=== PATIENT | male | born 1955 | race Caucasian/White ===

== ENCOUNTER → 2016-12-26 | Outpatient (CLI) | payer OTHER ==
--- NOTE | 2016-12-26 18:27 | PN ---
DATE OF SERVICE: 12/26/2016 This patient is a 61-year-old gentleman who has been followed in the sleep center for treatment of obstructive sleep apnea/hypopnea syndrome. Patient is on treatment with CPAP at the pressure of 7 cm of water. He is trying to use equipment every night for the whole night. Sometimes he may take his mask off in the morning. I checked his machine; CPAP pressure is 7 cm of water. With the machine, patient does not have snoring, does not feel any sleepiness during the day. [place] Sleepiness Scale is 1. He is satisfied with his full-face mask. MEDICATIONS: 1. Meclizine. 2. Valium. 3. Tylenol. PHYSICAL EXAMINATION: Patient is in no distress. VITAL SIGNS: BP 118/63, HR 74, RR 16. Height 5 feet 11-1/2 inches. Weight 188. BMI 25.8. Temperature 98.0. Oxygen saturation at room air 98%. Patient has lost 3 pounds since the previous sleep study, which was done in 2013. HEENT: LETHA, EOMI. Evaluation of oropharynx showed tongue protrudes midline; low position of soft palate. NECK: Supple. No JVD. Thyroid is not palpable. LUNGS: Clear to percussion and to auscultation. Good air exchange. No wheezing or rhonchi. HEART: S1, S2 regular. No murmurs, gallops or rubs. ABDOMEN: Soft and nontender. Bowel sounds are present. No organomegaly appreciated. EXTREMITIES: No clubbing or cyanosis. CLINICAL PROJECT MANAGER: Awake, alert, and oriented x3. Cranial nerves 2 to 7 intact. There is no fasciculation or atrophy noted. No focal deficits observed. IMPRESSION: 1. Obstructive sleep apnea/hypopnea syndrome in moderate range. By results of previous sleep study, apnea-hypopnea index 15.7, clinically under control with CPAP at 7 cm of water. No snoring with the machine. Patient is benefiting from treatment. 2. Episodes of anxiety. 3. Nausea. 4. Neck problems and neck pain. 5. Back pain. PLAN: 1. Continue treatment with CPAP every night. 2. Prescription for all necessary CPAP supplies, including mask, tube, filters. 3. No driving if feeling any sleepiness. 4. Sleep hygiene with regular time in bed for at least 8 hours. 5. Follow-up visit in one year. Thank you very much for allowing me to participate in the management your patient. Sincerely, Prasad Wheat MD, PhD, FAASM. Diplomat of [place] [employer], Sleep Medicine Board by [place] [employer], [place] Board of [employer]
== END | disposition home or self-care (01) ==
LOC: SLEEP 14:26
PROVIDERS: ATTEND Internal Medicine
DX: G47.33 Obstructive sleep apnea (adult) (pediatric) (principal); F41.9 Anxiety disorder, unspecified; R11.0 Nausea; M54.2 Cervicalgia; M54.9 Dorsalgia, unspecified; Z79.899 Other long term (current) drug therapy

== ENCOUNTER → 2018-04-16 | Outpatient (CLI) | payer MEDICARE ==
--- NOTE | 2018-04-16 14:24 | SFUN ---
SLEEP CENTER FOLLOW UP NOTE DATE OF SERVICE: 04/16/2018 A 63-year-old gentleman has been followed in Sleep Center for treatment of obstructive sleep apnea-hypopnea syndrome. The patient successfully continued to use his CPAP equipment every night without problems. No snoring with the machine. No significant excessive daytime sleepiness. [place] Sleepiness Scale is normal at 3. The patient referred that he would prefer to consider a different styles of fullface mask. MEDICATIONS: Meclizine, Valium, Tylenol. PHYSICAL EXAM: GENERAL During physical exam, patient in no distress. VITAL SIGNS BP 98/60, HR 75, RR 16, height 5 foot 11-10/07, weight 190.2, BMI 26.1, temp is 98.1, oxygen saturation room air 98%. HEENT PERRLA, EOMI, evaluation of oropharynx showed extremely low position of soft palate. NECK Supple, no JVD. Thyroid is not palpable. LUNGS Clear to percussion and to auscultation. Good air exchange. No wheezing or rhonchi. HEART S1, S2 regular. No murmurs, gallops, or rubs. ABDOMEN Soft and nontender. Bowel sounds are present. No organomegaly appreciated. EXTREMITIES No clubbing or cyanosis. HOSPITALITY SERVICES MANAGER Awake, alert, and oriented X3. Cranial nerves 2 to 7 intact. There is no fasciculation or atrophy. noted. No focal deficits observed. IMPRESSION: 1. Obstructive sleep apnea-hypopnea syndrome. The patient continued to use his CPAP equipment benefitting on regular basis with good compliance, benefitting from treatment. 2. History of episodes of anxiety. 3. Neck problems and neck pain sometimes. 4. History of back pain. 5. Episodes of nausea. PLAN: 1. Patient will continue to use CPAP equipment every night for the whole night. 2. We will show the patient different style of mask with a nasal part going under the nose with coverage of mouth like [place]. 3. No driving if feeling sleepiness. 4. Prescription for all necessary CPAP supplies including mask, tube, filters. Thank you very much for allowing me to participate in management of your patient. Sincerely, Prasad Wheat MD, PhD, FAASM Diplomat of [place] [employer] Special[employer] [place] [employer] Medicine Barrel Raiser Helper [facility] [place] MMODL / DAVINN: [id number] /
== END | disposition home or self-care (01) ==
LOC: SLEEP 13:17
PROVIDERS: ATTEND Internal Medicine
DX: G47.33 Obstructive sleep apnea (adult) (pediatric) (principal); F41.9 Anxiety disorder, unspecified; M54.2 Cervicalgia; M54.9 Dorsalgia, unspecified; R11.0 Nausea; Z99.89 Dependence on other enabling machines and devices; Z79.899 Other long term (current) drug therapy

== ENCOUNTER → 2019-06-03 | Outpatient (CLI) | payer MEDICARE ==
--- NOTE | 2019-06-03 14:17 | SFUN ---
SLEEP CENTER FOLLOW UP NOTE DATE OF SERVICE: 06/03/2019 A 64-year-old gentleman who has been followed in the Sleep Center for treatment of obstructive sleep apnea-hypopnea syndrome. During the last visit, we change mask to Dream Wear which covered nose and mouth from below. The patient had difficulties with this mask and returned to use of his old Simplex mask. He is trying to use equipment, but has some difficulties with that. [place] Sleepiness Scale today is 3. MEDICATIONS: Meclizine, Valium, Tylenol. PHYSICAL EXAM: Patient in no distress. BP 127/69, HR 70, RR 16, height 5, 11, weight 180, body mass index 25.1. Patient lost weight about 10 pounds since previous visit. Temperature 97.6, oxygen saturation at room air 97%. OROPHARYNX: Extremely low soft palate, Mallampati 4. Neck Supple, no JVD. Thyroid is not palpable. LUNGS Clear to percussion and to auscultation. Good air exchange. No wheezing or rhonchi. HEART S1, S2 regular. No murmurs, gallops, or rubs. ABDOMEN Soft and nontender. Bowel sounds are present. No organomegaly appreciated. EXTREMITIES No clubbing or cyanosis. FACTORY HAND Awake, alert, and oriented X3. Cranial nerves 2 to 7 intact. There is no fasciculation or atrophy. noted. No focal deficits observed. IMPRESSION: 1. Obstructive sleep apnea-hypopnea syndrome. Patient had difficulties with Dream Wear mask, trying to use equipment every night. 2. History of episodes of anxiety. 3. Neck problem with neck pain. 4. History of back pain. 5. Episodes of nausea. PLAN: 1. Patient should use equipment every night for the whole night. 2. Prescription for all necessary CPAP supplies including large size Simplex full-face mask. 3. Sleep hygiene with regular time in bed for 7-1/2 hours. 4. No driving if feeling sleepiness. 5. I would recommend patient to repeat in the titration to recheck fitting of the mask and pressure. Thank you very much for allowing me to participate in the management of your patient. Sincerely, Prasad Wheat MD, PhD, FAASM Diplomat of [place] [employer] Special[employer] [place] Board of Internal Medicine [employer]ist [facility] [place] MMODL / DAVINN: [id number] /
== END | disposition home or self-care (01) ==
LOC: SLEEP 13:10
PROVIDERS: ATTEND Internal Medicine
DX: G47.33 Obstructive sleep apnea (adult) (pediatric) (principal); R11.0 Nausea; Z86.59 Personal history of other mental and behavioral disorders; Z87.39 Personal history of other diseases of the musculoskeletal system and connective tissue

== ENCOUNTER → 2020-03-07 | Outpatient (CLI) | payer MEDICARE | END | disposition home or self-care (01) | LOC: LABWHC1 12:07 | PROVIDERS: ATTEND Internal Medicine Gastroenterology | DX: Z11.59 Encounter for screening for other viral diseases (principal) ==

== ENCOUNTER 2020-03-09 10:13 | Day surgery (SDC) | payer MEDICARE ==
[2020-03-08 08:10] VITALS: BMI 25.7
[~2020-03-09 10:13] MED LIST: LACTATED RINGERS 1,000 ML IV SCH
[2020-03-09 10:42] VITALS: TEMP 97.3
[2020-03-09] MEDS ORDERED: ONDANSETRON 4 MG/2 ML VIAL IVP ONE (10:47)
[2020-03-09] MEDS ORDERED: diphenhydrAMINE 50 MG/ML 1 ML VIAL ONE (11:21)
[2020-03-09] MEDS ORDERED: PROPOFOL 10 MG/ML 20 ML VIAL IV ONE (11:21)
--- NOTE | 2020-03-09 11:41 | P.PCN ---
Date of Procedure: 03/09/20 Procedure(s) Performed: BRIEF HISTORY: Patient is a 64-year-old pleasant male scheduled for an elective colonoscopy as a part of screening for colorectal neoplasia. PROCEDURE PERFORMED: Colonoscopy. PREOPERATIVE DIAGNOSIS: Screening for colon cancer. IV sedation per Anesthesia. PROCEDURE: After informed consent was obtained, the patient, was brought into the endoscopy unit. IV sedation was administered by Anesthesia under continuous monitoring. Digital rectal examination was normal. Initially the Olympus CF-160 flexible video colonoscope was then inserted in the rectum, gradually advanced into the cecum without any difficulty. Careful examination was performed as the scope was gradually being withdrawn. Ileocecal valve and the appendiceal orifice were visualized and appeared normal. Prep was excellent. Mucosa of the cecum, ascending colon, transverse colon, descending colon, sigmoid colon, and rectum appeared normal. Retroflexion was performed in the rectum and small internal hemorrhoids were seen. The patient tolerated the procedure well. IMPRESSION: Normal-appearing colon from rectum to cecum with no evidence of colitis or colorectal neoplasia. Small internal hemorrhoids. RECOMMENDATIONS: Findings of this examination were discussed with the patient as well as his family. He was advised to have a repeat screening colonoscopy in 10 years.
[2020-03-09 12:15] VITALS: BP 148/77; PULSE 67; RESP 16
== END 2020-03-09 12:44 | disposition home or self-care (01) ==
LOC: ORWHC2ENDO 10:13
PROVIDERS: ATTEND Internal Medicine Gastroenterology
DX: Z12.11 Encounter for screening for malignant neoplasm of colon (principal); K64.8 Other hemorrhoids; Z91.013 Allergy to seafood
CPT/HCPCS: J1200; J2405; J2704; G0121

== ENCOUNTER → 2020-08-29 | Outpatient (CLI) | payer MEDICARE ==
--- NOTE | 2020-08-29 14:38 | CT ---
EXAMINATION TYPE: CT soft tissue neck w con DATE OF EXAM: 08/29/2020 COMPARISON: None HISTORY: feels like something caught in throat CT DLP: 363.5 mGycm CONTRAST: CT scan of the neck is performed with IV Contrast, patient injected with 100 mL of Isovue 300. Contrast enhanced CT of the neck was performed from the skull base through the lung apices. AIRWAY: The supraglottic, glottic, and subglottic portions of the airway appear patent and free of mass. SALIVARY GLANDS: The submandibular and parotid glands are free of mass or inflammatory process. THYROID GLAND: No nodules or masses seen. LYMPH NODES: No adenopathy seen greater than 1cm. LUNG APICES: No nodule or mass is seen. OTHER: Vascular structures are patent. No significant degenerative change of the cervical spine. N o abscess seen. IMPRESSION: No distinct abnormality identified to account for the patient's symptoms. Consider direct visualizati on if symptoms persist.
== END | disposition home or self-care (01) ==
LOC: RADCTMAIN 12:26
PROVIDERS: ATTEND Otolaryngology
DX: R22.1 Localized swelling, mass and lump, neck (principal); R09.89 Other specified symptoms and signs involving the circulatory and respiratory systems
CPT/HCPCS: 82565; 84520; 70491; 36415; Q9967

== ENCOUNTER → 2020-12-20 | Outpatient (CLI) | payer MEDICARE ==
--- NOTE | 2020-12-20 15:24 | SFUN ---
SLEEP CENTER FOLLOW UP NOTE DATE OF SERVICE: 12/20/2020 This is a 65-year-old gentleman who has been followed in the sleep center for treatment of obstructive sleep apnea-hypopnea syndrome. The patient improved his compliance with CPAP. Now he is using CPAP equipment every night for the whole night. No snoring with the machine. [place] Sleepiness Scale today is zero. I checked his CPAP unit. Usage is 27/30 nights for more than 4 hours with average usage 7.06 hours per night. CPAP pressure is 7 cm of water. The machine does not have information about apnea-hypopnea index and leak. The patient is using a full-face Simplus large-size mask and regular tubing. MEDICATIONS: None. PHYSICAL EXAMINATION: GENERAL: A pleasant patient in no distress. VITAL SIGNS: BP 177/75, HR 78, RR 14, height 6 feet 0 inches, weight 197.4, body mass index 26.7, oxygen saturation at room air 100%. HEENT: PERRLA, EOMI. Evaluation of oropharynx showed tongue protrudes midline. Extremely low position of soft palate. Mallampati IV. NECK: Supple. No JVD. Thyroid is not palpable. LUNGS: Clear to percussion and to auscultation. Good air exchange. No wheezing or rhonchi. HEART: S1, S2 regular. No murmurs, gallops or rubs. ABDOMEN: Soft and nontender. Bowel sounds are present. No organomegaly appreciated. EXTREMITIES: No clubbing or cyanosis. PLUG CUTTER: Awake, alert, and oriented X3. Cranial nerves 2 to 7 intact. There is no fasciculation or atrophy. noted. No focal deficits observed. IMPRESSION: 1. Obstructive sleep apnea-hypopnea syndrome. The patient demonstrated great compliance with treatment, benefitting from treatment. 2. Neck pain. 3. History of back problems and pain. 4. History of episodes of nausea in the past. 5. The patient is planning to be evaluated by a flute grinder for arthritis problems. 6. Hypertension in the office today. PLAN: 1. Low-sodium diet. 2. Monitoring of blood pressure with primary care physician. 3. Patient will continue to use PAP equipment every night for the whole night. 4. Sleep hygiene with regular time in bed for at least 7-1/2 to 8 hours. 5. Precautions related to driving. No driving if feeling sleepiness. 6. I will maintain all necessary prescription for PAP supplies including mask, tube, filters. 7. Watching weight. 8. Follow-up visit in 6 months or earlier if patient has any problems. Thank you very much for allowing me to participate in the management of your patient. Sincerely, Prasad Wheat MD, PhD, FAASM Diplomat of [place] Board of Medical Specialties [place] Board of Internal Medicine Dean Of Graduate Studies of [facility] [place] MMODL / IJN: [id number] /
== END ==
LOC: SLEEP 13:07
PROVIDERS: ATTEND Internal Medicine
DX: G47.33 Obstructive sleep apnea (adult) (pediatric) (principal); M54.2 Cervicalgia; M19.90 Unspecified osteoarthritis, unspecified site; I10 Essential (primary) hypertension; Z87.891 Personal history of nicotine dependence; Z87.19 Personal history of other diseases of the digestive system

== ENCOUNTER 2022-06-04 09:18 | Emergency (ER) | payer MEDICARE ==
[2022-06-04 10:04] VITALS: RESP 18
[2022-06-04] MEDS ORDERED: ONDANSETRON 4 MG/2 ML VIAL IVP STA (10:41)
[2022-06-04] MEDS ORDERED: PANTOPRAZOLE 40 MG/10 ML VIAL IVP STA (10:41)
[2022-06-04] MEDS ORDERED: SODIUM CHLORIDE 0.9% 1,000 ML IV STA (10:41)
--- NOTE | 2022-06-04 10:50 | ED ---
General Adult HPI - General Chief complaint: Dizziness Stated complaint: vomiting Time Seen by Provider: 06/04/22 10:15 Source: patient, family, RN notes reviewed, old records reviewed Mode of arrival: ambulatory Limitations: no limitations - History of Present Illness Initial comments: This is a well-appearing 67-year-old male that presents to the emergency room with complaints of 4 days of dizziness with abdominal fullness and bloating. He states 4 days ago he turned to look out the window and developed dizziness, this was similar to his previous episodes of peripheral vertigo. He states his dizziness is resolved at this time. He has chronic nausea and continues to be nauseated and unable to eat, having dry heaves. Family states that he is vomiting bile. He denies any fevers or sick contacts. No diarrhea. Last bowel movement was 3 days ago normal. Does have a history of GERD and had an endoscopy with Dr. Owens a year ago diagnosed with hiatal hernia. -: days(s) (4) Location: abdomen Radiation: non-radiation Severity scale (1-10): 6 Quality: other (full, bloated) Consistency: constant Improves with: none Worsens with: none Associated Symptoms: loss of appetite, malaise, other (dizziness) - Related Data Previous Rx's Medication Instructions Recorded Meclizine [Antivert] 25 mg PO TID PRN #15 tab 06/04/22 Ondansetron Odt [Zofran Odt] 4 mg PO Q8HR PRN #10 tab 06/04/22 Allergies Allergy/AdvReac Type Severity Reaction Status Date / Time shellfish derived [Shellfish] Allergy Rash/Hives Verified 03/08/20 08:05 Review of Systems ROS Statement: Those systems with pertinent positive or pertinent negative responses have been documented in the HPI. ROS Other: All systems not noted in ROS Statement are negative. Past Medical History Past Medical History: GERD/Reflux, Osteoarthritis (OA) Additional Past Medical History / Comment(s): vertigo, anemia, nauseated, bloating History of Any Multi-Drug Resistant Organisms: None Reported Additional Past Surgical History / Comment(s): Sinus surgery Past Anesthesia/Blood Transfusion Reactions: Postoperative Nausea & Vomiting (PONV) Past Psychological History: No Psychological Hx Reported Smoking Status: Former smoker Past Alcohol Use History: None Reported Past Drug Use History: None Reported - Past Family History Mother Family Medical History: No Reported History General Exam Limitations: no limitations General appearance: alert, in no apparent distress Head exam: Present: atraumatic, normal inspection Eye exam: Present: EOMI. Absent: scleral icterus, conjunctival injection, nystagmus, periorbital swelling, periorbital tenderness ENT exam: Present: mucous membranes moist Neck exam: Present: normal inspection, full ROM. Absent: tenderness, meningismus, lymphadenopathy, thyromegaly Respiratory exam: Present: normal lung sounds bilaterally. Absent: respiratory distress, accessory muscle use Cardiovascular Exam: Present: regular rate GI/Abdominal exam: Present: soft. Absent: distended, tenderness, guarding, rebound, rigid, mass Extremities exam: Present: normal inspection, full ROM, normal capillary refill. Absent: tenderness, pedal edema Back exam: Present: full ROM. Absent: tenderness, CVA tenderness (R), CVA tenderness (L), muscle spasm, paraspinal tenderness, vertebral tenderness, rash noted Neurological exam: Present: alert, oriented X3 Psychiatric exam: Present: normal affect, normal mood Skin exam: Present: warm, dry, normal color. Absent: rash, cyanosis, diaphoretic, petechiae, pallor Course Vital Signs 06/04/22 06/04/22 06/04/22 09:59 10:35 13:34 Temperature 98.1 F 97.9 F 98.0 F Pulse Rate 80 74 Respiratory 18 18 Rate Blood Pressure 157/90 126/74 O2 Sat by Pulse 100 99 Oximetry - Reevaluation(s) Reevaluation #1: 06/04/22 11:40 Patient denies any dizziness in the emergency room however he still complains of nausea and diffuse headache. Patient was given Tylenol and droperidol. 06/04/22 11:43 Time: 11:40 EKG Findings - EKG Results: EKG: sinus rhythm (Ventricular rate 69, LA interval 0.148, QRS 0.105, QTC 0.427) Medical Decision Making - Medical Decision Making X-ray shows an overall nonobstructive bowel gas pattern. No evidence of dilatation or air fluid levels. CBC is unremarkable, no evidence of lactic acidosis. Coronavirus negative. CTA brain images show no evidence of high-grade stenosis or intracranial aneurysm. Patient states that he is feeling better, he has had no complaints of dizziness in the emergency room. He states that his nausea is been persistent for several years and takes antihistamines for it at home. He has no focal neurological deficits no ataxia. He will be given a prescription for Antivert for his peripheral vertigo as needed and Zofran for his nausea. He will be directed to return to the emergency room if any new or concerning symptoms. He is agreeable to this plan of care. Vital signs are stable. Case discussed with Dr. Christensen - Lab Data Result diagrams: 06/04/22 10:49 06/04/22 10:49 Lab Results 06/04/22 06/04/22 06/04/22 Range/Units 10:49 10:49 10:49 WBC 8.5 (3.8-10.6) k/uL RBC 5.26 (4.30-5.90) m/uL Hgb 15.4 (13.0-17.5) gm/dL Hct 46.9 (39.0-53.0) % MCV 89.2 (80.0-100.0) fL MCH 29.3 (25.0-35.0) pg MCHC 32.9 (31.0-37.0) g/dL RDW 12.9 (11.5-15.5) % Plt Count 282 (150-450) k/uL MPV 7.8 Neutrophils % 73 % Lymphocytes % 21 % Monocytes % 3 % Eosinophils % 2 % Basophils % 0 % Neutrophils # 6.2 (1.3-7.7) k/uL Lymphocytes # 1.8 (1.0-4.8) k/uL Monocytes # 0.3 (0-1.0) k/uL Eosinophils # 0.2 (0-0.7) k/uL Basophils # 0.0 (0-0.2) k/uL PT (9.0-12.0) sec INR (<1.2) APTT (22.0-30.0) sec Sodium 137 (137-145) mmol/L Potassium 4.5 (3.5-5.1) mmol/L Chloride 98 (98-107) mmol/L Carbon Dioxide 26 (22-30) mmol/L Anion Gap 13 mmol/L BUN 20 (9-20) mg/dL Creatinine 0.97 (0.66-1.25) mg/dL Est GFR (CKD-EPI)AfAm >90 (>60 ml/min/1.73 sqM) Est GFR (CKD-EPI)NonAf 80 (>60 ml/min/1.73 sqM) Glucose 123 H (74-99) mg/dL Plasma Lactic Acid Robert 2.0 (0.7-2.0) mmol/L Calcium 10.0 (8.4-10.2) mg/dL Total Bilirubin 0.7 (0.2-1.3) mg/dL AST 30 (17-59) U/L ALT 30 (4-49) U/L Alkaline Phosphatase 110 (38-126) U/L Troponin I (0.000-0.034) ng/mL Total Protein 8.5 H (6.3-8.2) g/dL Albumin 4.7 (3.5-5.0) g/dL Amylase 116 H (30-110) U/L Lipase 88 (23-300) U/L Urine Color Urine Appearance (Clear) Urine pH (5.0-8.0) Ur Specific [place] (1.001-1.035) Urine Protein (Negative) Urine Glucose (UA) (Negative) Urine Ketones (Negative) Urine Blood (Negative) Urine Nitrite (Negative) Urine Bilirubin (Negative) Urine Urobilinogen (<2.0) mg/dL Ur Leukocyte Esterase (Negative) Coronavirus (PCR) (Not Detectd) 06/04/22 06/04/22 06/04/22 Range/Units 10:49 10:49 10:49 WBC (3.8-10.6) k/uL RBC (4.30-5.90) m/uL Hgb (13.0-17.5) gm/dL Hct (39.0-53.0) % MCV (80.0-100.0) fL MCH (25.0-35.0) pg MCHC (31.0-37.0) g/dL RDW (11.5-15.5) % Plt Count (150-450) k/uL MPV Neutrophils % % Lymphocytes % % Monocytes % % Eosinophils % % Basophils % % Neutrophils # (1.3-7.7) k/uL Lymphocytes # (1.0-4.8) k/uL Monocytes # (0-1.0) k/uL Eosinophils # (0-0.7) k/uL Basophils # (0-0.2) k/uL PT 11.0 (9.0-12.0) sec INR 1.0 (<1.2) APTT 22.3 (22.0-30.0) sec Sodium (137-145) mmol/L Potassium (3.5-5.1) mmol/L Chloride (98-107) mmol/L Carbon Dioxide (22-30) mmol/L Anion Gap mmol/L BUN (9-20) mg/dL Creatinine (0.66-1.25) mg/dL Est GFR (CKD-EPI)AfAm (>60 ml/min/1.73 sqM) Est GFR (CKD-EPI)NonAf (>60 ml/min/1.73 sqM) Glucose (74-99) mg/dL Plasma Lactic Acid Robert (0.7-2.0) mmol/L Calcium (8.4-10.2) mg/dL Total Bilirubin (0.2-1.3) mg/dL AST (17-59) U/L ALT (4-49) U/L Alkaline Phosphatase (38-126) U/L Troponin I <0.012 (0.000-0.034) ng/mL Total Protein (6.3-8.2) g/dL Albumin (3.5-5.0) g/dL Amylase (30-110) U/L Lipase (23-300) U/L Urine Color Yellow Urine Appearance Clear (Clear) Urine pH 6.0 (5.0-8.0) Ur Specific [place] 1.025 (1.001-1.035) Urine Protein Trace H (Negative) Urine Glucose (UA) Negative (Negative) Urine Ketones 1+ H (Negative) Urine Blood Negative (Negative) Urine Nitrite Negative (Negative) Urine Bilirubin Negative (Negative) Urine Urobilinogen <2.0 (<2.0) mg/dL Ur Leukocyte Esterase Negative (Negative) Coronavirus (PCR) (Not Detectd) 06/04/22 Range/Units 10:49 WBC (3.8-10.6) k/uL RBC (4.30-5.90) m/uL Hgb (13.0-17.5) gm/dL Hct (39.0-53.0) % MCV (80.0-100.0) fL MCH (25.0-35.0) pg MCHC (31.0-37.0) g/dL RDW (11.5-15.5) % Plt Count (150-450) k/uL MPV Neutrophils % % Lymphocytes % % Monocytes % % Eosinophils % % Basophils % % Neutrophils # (1.3-7.7) k/uL Lymphocytes # (1.0-4.8) k/uL Monocytes # (0-1.0) k/uL Eosinophils # (0-0.7) k/uL Basophils # (0-0.2) k/uL PT (9.0-12.0) sec INR (<1.2) APTT (22.0-30.0) sec Sodium (137-145) mmol/L Potassium (3.5-5.1) mmol/L Chloride (98-107) mmol/L Carbon Dioxide (22-30) mmol/L Anion Gap mmol/L BUN (9-20) mg/dL Creatinine (0.66-1.25) mg/dL Est GFR (CKD-EPI)AfAm (>60 ml/min/1.73 sqM) Est GFR (CKD-EPI)NonAf (>60 ml/min/1.73 sqM) Glucose (74-99) mg/dL Plasma Lactic Acid Robert (0.7-2.0) mmol/L Calcium (8.4-10.2) mg/dL Total Bilirubin (0.2-1.3) mg/dL AST (17-59) U/L ALT (4-49) U/L Alkaline Phosphatase (38-126) U/L Troponin I (0.000-0.034) ng/mL Total Protein (6.3-8.2) g/dL Albumin (3.5-5.0) g/dL Amylase (30-110) U/L Lipase (23-300) U/L Urine Color Urine Appearance (Clear) Urine pH (5.0-8.0) Ur Specific [place] (1.001-1.035) Urine Protein (Negative) Urine Glucose (UA) (Negative) Urine Ketones (Negative) Urine Blood (Negative) Urine Nitrite (Negative) Urine Bilirubin (Negative) Urine Urobilinogen (<2.0) mg/dL Ur Leukocyte Esterase (Negative) Coronavirus (PCR) Not Detected (Not Detectd) Disposition Clinical Impression: Vertigo, Nausea Disposition: HOME SELF-CARE Condition: Good Instructions (If sedation given, give patient instructions): Vertigo (ED), Acute Nausea and Vomiting (ED), Dizziness (ED) Additional Instructions: Take the Antivert as needed for any dizziness/vertigo. You can use Zofran for any nausea. Follow-up with her primary care doctor this week. Return to the emergency room with any new or concerning symptoms. Prescriptions: Meclizine [Antivert] 25 mg PO TID PRN #15 tab PRN Reason: Vertigo Ondansetron Odt [Zofran Odt] 4 mg PO Q8HR PRN #10 tab PRN Reason: Nausea Is patient prescribed a controlled substance at d/c from ED?: No Referrals: Tre Turner DO [Primary Care Provider] - 1-2 days Time of Disposition: 13:18
[2022-06-04 11:16] LABS: Basophils % (A) 0 %; Eosinophils # (A) 0.2 k/uL (0-0.7); Eosinophils % (A) 2 %; HCT 46.9 % (39.0-53.0); HGB 15.4 gm/dL (13.0-17.5); Lymphocytes # (A) 1.8 k/uL (1.0-4.8); Lymphocytes % (A) 21 %; MCH 29.3 pg (25.0-35.0); MCHC 32.9 g/dL (31.0-37.0); MCV 89.2 fL (80.0-100.0); Mean Platelet Volume 7.8; Monocytes # (A) 0.3 k/uL (0-1.0); Monocytes % (A) 3 %; Neutrophils # (A) 6.2 k/uL (1.3-7.7); Neutrophils % (A) 73 %; Platelet Count 282 k/uL (150-450); RBC 5.26 m/uL (4.30-5.90); RDW 12.9 % (11.5-15.5); WBC 8.5 k/uL (3.8-10.6)
[2022-06-04 11:24] LABS: Partial Thromboplastin Time 22.3 sec (22.0-30.0)
--- NOTE | 2022-06-04 11:27 | XR ---
EXAMINATION TYPE: XR KUB DATE OF EXAM: 06/04/2022 COMPARISON: CT chest abdomen pelvis 04/30/2015 HISTORY: Abdominal pain TECHNIQUE: Upright KUB image of the abdomen was obtained with 2 radiographs. FINDINGS: Small bowel demonstrates no evidence for dilatation or air fluid levels. Gas and fecal material is seen in non-distended colon. No convincing evidence for pneumoperitoneum. No unusual calcifications. The lung bases are clear. The osseous structures are intact. IMPRESSION: Overall nonobstructive bowel gas pattern.
[2022-06-04] MEDS ORDERED: ACETAMINOPHEN TAB 325 MG TAB PO STA (11:40)
[2022-06-04 11:41] LABS: African American GFR (CKD) >90 (>60 ml/min/1.73 sqM); Albumin 4.7 g/dL (3.5-5.0); Amylase 116 U/L (30-110); Anion Gap 13 mmol/L; Blood Urea Nitrogen 20 mg/dL (9-20); Carbon Dioxide 26 mmol/L (22-30); Chloride 98 mmol/L (98-107); Glucose 123 mg/dL (74-99); Non-African American GFR(CKD) 80 (>60 ml/min/1.73 sqM); Potassium 4.5 mmol/L (3.5-5.1); Sodium 137 mmol/L (137-145); Total Protein 8.5 g/dL (6.3-8.2)
[2022-06-04 11:42] LABS: ALT 30 U/L (4-49); AST 30 U/L (17-59); Alkaline Phosphatase 110 U/L (38-126); Lipase 88 U/L (23-300); Total Bilirubin 0.7 mg/dL (0.2-1.3)
[2022-06-04] MEDS ORDERED: methylPREDNISolone SOD SUCCI 125 MG/2 ML VIAL IV STA (11:46)
[2022-06-04] MEDS ORDERED: diphenhydrAMINE 50 MG/ML 1 ML VIAL IVP STA (11:46)
[2022-06-04 12:39] LABS: Appearance,Urine Clear (Clear); Bilirubin,Urine Negative (Negative); Blood,Urine Negative (Negative); Color,Urine Yellow; Glucose,Urine (UA) Negative (Negative); Ketones,Urine 1+ (Negative); Leukocyte Esterase,Urine Negative (Negative); Nitrite,Urine Negative (Negative); Protein,Urine Trace (Negative); Specific Gravity,Urine 1.025 (1.001-1.035); Urobilinogen,Urine <2.0 mg/dL (<2.0)
--- NOTE | 2022-06-04 12:55 | CT ---
EXAMINATION TYPE: CT angio head CT DLP: 2204.3 mGycm, Automated exposure control for dose reduction was used. DATE OF EXAM: 06/04/2022 12:38 PM COMPARISON: 04/30/2015 CLINICAL INDICATION:Male, 67 years old with history of diffuse pain, dizziness, nausea; PHH, Pain, Di zziness TECHNIQUE: Axially acquired helical CT angiogram of the head and neck was obtained with contrast util izing 100 cc of Isovue-370 administered intravenously. Axial images are supplemented with 3D reconstr uctions which were post-processed at an independent workstation. NASCET criteria used. FINDINGS: No evidence of acute intracranial hemorrhage, mass effect, or midline shift. The ventricles, sulci, a nd cisterns are unremarkable. The visualized portions of the internal carotid arteries, middle cerebral arteries, anterior cerebral arteries, and posterior cerebral arteries are patent. There is a origin of the left posterior cerebral artery. Hypoplastic right posterior communicating artery is noted. The basilar and vertebral arteries are patent. Mild intracranial atherosclerosis noted of the carotid arteries Minimal mucosal thickening of the maxillary sinuses. IMPRESSION: No evidence of high-grade stenosis or intracranial aneurysm.
[2022-06-04 13:36] VITALS: BP 126/74; PULSE 74; TEMP 98
== END 2022-06-04 13:35 | disposition home or self-care (01) ==
LOC: EC 09:18
DX: R11.2 Nausea with vomiting, unspecified (principal); R42 Dizziness and giddiness; Z87.891 Personal history of nicotine dependence; Z91.013 Allergy to seafood; Z20.822 Contact with and (suspected) exposure to COVID-19
CPT/HCPCS: 99284 ×2; 96374 ×2; 96375 ×2; 36415; 93005; 80053; 82150; 83605; 83690; 84484; 85025; 85610; 85730; 81003; 87635; 74018; 70496; 96361; J1200; J2930; J2405; C9113; Q9967

== ENCOUNTER → 2022-07-12 | Outpatient (CLI) | payer MEDICARE ==
[2022-07-12 14:28] LABS: HCT 41.9 % (39.6-50.0); HGB 13.4 g/dL (13.0-17.0); MCH 28.9 pg (27.0-32.0); MCV 90.5 fL (80.0-97.0); NRBC Per 100 WBC 0 /100 WBCS (0.0-0.0); Platelet Count 261 X 10*3/uL (140-440); RBC 4.63 X 10*6/uL (4.40-5.60); WBC 6.69 X 10*3/uL (4.50-10.00)
[2022-07-12 15:04] LABS: ALT 28 U/L (10-49); AST 26 U/L (14-35); African American GFR (CKD) 84.5 (60.0-200.0); Albumin 4.4 g/dL (3.8-4.9); Albumin/Globulin Ratio 1.67 (1.60-3.17); Alkaline Phosphatase 82 U/L (41-126); BUN/Creat Ratio 18.56 Ratio (12.00-20.00); Blood Urea Nitrogen 19.3 mg/dL (9.0-27.0); Calcium 9.6 mg/dL (8.7-10.3); Carbon Dioxide 29.1 mmol/L (20.0-27.5); Chloride 103 mmol/L (96-109); Chol/HDL Ratio 6.42 Ratio; Globulin 2.6 g/dL (1.6-3.3); Glucose 94 mg/dL (70-110); LDL Cholesterol,Calculated 139.6 mg/dL (0.0-131.0); Non-African American GFR(CKD) 72.9 (60.0-200.0); Potassium 4.6 mmol/L (3.5-5.5); Sodium 141 mmol/L (135-145)
[2022-07-12 16:33] LABS: Appearance,Urine Clear (Clear); Bilirubin,Urine Negative (Negative); Blood,Urine Negative (Negative); Color,Urine Yellow (Yellow); Ketones,Urine Negative (Negative); Nitrite,Urine Negative (Negative); PH, Urine 6.5 (5.0-8.0); Specific Gravity,Urine 1.012 (1.001-1.030); Urobilinogen,Urine 0.2 (0.2,1.0)
== END | disposition home or self-care (01) ==
LOC: LABWHC1 07:26
PROVIDERS: ATTEND Family Medicine
DX: Z00.01 Encounter for general adult medical examination with abnormal findings (principal); N40.0 Benign prostatic hyperplasia without lower urinary tract symptoms
CPT/HCPCS: 36415; 80053; 80061; 81003; 84153; 85027

== ENCOUNTER → 2022-07-26 | Outpatient (CLI) | payer MEDICARE | END | disposition home or self-care (01) | LOC: LABWHC1 13:21 | PROVIDERS: ATTEND Dermatology MOHS-Micrographic Surgery | DX: L30.0 Nummular dermatitis (principal) | CPT/HCPCS: 36415; 82955 ==

== ENCOUNTER → 2023-05-27 | Outpatient (CLI) | payer MEDICARE ==
[2023-05-27 11:00] LABS: Appearance,Urine Clear (Clear); Bilirubin,Urine Negative (Negative); Blood,Urine Negative (Negative); Color,Urine Yellow (Yellow); Ketones,Urine Negative (Negative); Nitrite,Urine Negative (Negative); Specific Gravity,Urine 1.008 (1.001-1.030); Urobilinogen,Urine 0.2 E.U./DL
[2023-05-27 11:01] LABS: HCT 41.3 % (39.6-50.0); HGB 13.4 d/dL (13.0-17.0); MCH 28.9 pg (27.0-32.0); MCHC 32.4 d/dL (32.0-37.0); MCV 89.2 FL (80.0-97.0); Mean Platelet Volume 10.7 FL (9.5-12.2); NRBC Per 100 WBC 0 X 10*3/uL (0.00-0.01); Platelet Count 257 X 10*3/uL (140-440); RBC 4.63 X 10*6/uL (4.40-5.60); RDW 13.6 % (11.5-14.5); WBC 6.26 X 10*3/uL (4.50-10.00)
[2023-05-27 11:29] LABS: ALT 27 U/L (10-49); AST 30 U/L (14-35); Albumin 4.4 d/dL (3.8-4.9); Albumin/Globulin Ratio 1.69 Ratio (1.60-3.17); Alkaline Phosphatase 100 U/L (41-126); BUN/Creat Ratio 15.45 Ratio (12.00-20.00); Calcium 9.8 mg/dL (8.7-10.3); Carbon Dioxide 28.1 mmol/L (21.6-31.8); Chloride 103 mmol/L (96-109); Chol/HDL Ratio 6.23 Ratio; Globulin 2.6 d/dL (1.6-3.3); Glucose 99 mg/dL (70-110); LDL Cholesterol,Calculated 158.3 mg/dL (0.0-131.0); Sodium 141 mmol/L (135-145); Total Bilirubin 0.5 mg/dL (0.3-1.2)
== END | disposition home or self-care (01) ==
LOC: LABWHC1 06:45
PROVIDERS: ATTEND Family Medicine
DX: Z00.01 Encounter for general adult medical examination with abnormal findings (principal); N40.0 Benign prostatic hyperplasia without lower urinary tract symptoms
CPT/HCPCS: 36415; 80053; 80061; 81003; 82272; 82306; 83036; 84443; 85027

== ENCOUNTER → 2024-05-04 | Outpatient (CLI) | payer MEDICARE ==
[2024-05-04 11:50] LABS: Appearance,Urine Clear (Clear); Bilirubin,Urine Negative (Negative); Blood,Urine Negative (Negative); Color,Urine Yellow (Yellow); Ketones,Urine Negative (Negative); Nitrite,Urine Negative (Negative); PH, Urine 6.5; Specific Gravity,Urine 1.012 (1.001-1.030); Urobilinogen,Urine 0.2 E.U./DL
[2024-05-04 11:55] LABS: Basophils # (A) 0.08 X 10*3/uL (0.00-0.10); Eosinophils # (A) 0.23 X 10*3/uL (0.04-0.35); HCT 39.8 % (39.6-50.0); HGB 12.3 g/dL (13.0-17.0); Lymphocytes # (A) 2.75 X 10*3/uL (0.90-5.00); Lymphocytes % (A) 35.4 %; MCH 28.4 pg (27.0-32.0); MCHC 30.9 g/dL (32.0-37.0); MCV 91.9 FL (80.0-97.0); Mean Platelet Volume 10.6 FL (9.5-12.2); Monocytes # (A) 0.45 X 10*3/uL (0.20-1.00); Monocytes % (A) 5.8 %; NRBC Per 100 WBC 0 X 10*3/uL (0.00-0.01); Neutrophils # (A) 4.22 X 10*3/uL (1.80-7.70); Neutrophils % (A) 54.4 %; Platelet Count 286 X 10*3/uL (140-440); RBC 4.33 X 10*6/uL (4.40-5.60); RDW 12.5 % (11.5-14.5); WBC 7.76 X 10*3/uL (4.50-10.00)
[2024-05-04 12:27] LABS: ALT 30 U/L (10-49); AST 27 U/L (14-35); Albumin 4.3 g/dL (3.8-4.9); Albumin/Globulin Ratio 1.43 Ratio (1.60-3.17); Alkaline Phosphatase 122 U/L (41-126); BUN/Creat Ratio 21.27 Ratio (12.00-20.00); Blood Urea Nitrogen 23.4 mg/dL (9.0-27.0); Calcium 9.6 mg/dL (8.7-10.3); Carbon Dioxide 24.1 mmol/L (21.6-31.8); Chloride 102 mmol/L (96-109); Chol/HDL Ratio 5.17 Ratio; Glucose 105 mg/dL (70-110); LDL Cholesterol,Calculated 138.4 mg/dL (0.0-131.0); Potassium 4.9 mmol/L (3.5-5.5); Prostate Specific Antigen 1.33 ng/mL (0.000-6.500); Sodium 139 mmol/L (135-145); T4, Free (Free Thyroxine) 1.07 ng/dL (0.80-1.80); Total Bilirubin 0.6 mg/dL (0.3-1.2); Total Protein 7.3 g/dL (6.2-8.2)
== END | disposition home or self-care (01) ==
LOC: LABWHC1 06:59
PROVIDERS: ATTEND Family Medicine
DX: E78.00 Pure hypercholesterolemia, unspecified (principal); N40.0 Benign prostatic hyperplasia without lower urinary tract symptoms; R53.83 Other fatigue; R73.03 Prediabetes
CPT/HCPCS: 36415; 80053; 80061; 81003; 82306; 82607; 82746; 83036; 84153; 84402; 84403; 84439; 84443; 85025

== ENCOUNTER → 2024-05-20 | Outpatient (CLI) | payer MEDICARE | END | disposition home or self-care (01) | LOC: LABWHC1 13:47 | DX: D64.9 Anemia, unspecified (principal) | CPT/HCPCS: 36415; 82728; 83540; 83550; 85025 ==

== ENCOUNTER → 2024-06-16 | Outpatient (CLI) | payer MEDICARE ==
[2024-06-16 18:57] LABS: Basophils # (A) 0.06 X 10*3/uL (0.00-0.10); Basophils % (A) 0.8 %; Eosinophils # (A) 0.21 X 10*3/uL (0.04-0.35); Eosinophils % (A) 2.9 %; HCT 38.1 % (39.6-50.0); HGB 12.2 g/dL (13.0-17.0); Lymphocytes # (A) 2.87 X 10*3/uL (0.90-5.00); Lymphocytes % (A) 39.4 %; MCH 28.6 pg (27.0-32.0); MCV 89.2 FL (80.0-97.0); Mean Platelet Volume 12.4 FL (9.5-12.2); Monocytes # (A) 0.47 X 10*3/uL (0.20-1.00); Monocytes % (A) 6.5 %; NRBC Per 100 WBC 0 X 10*3/uL (0.00-0.01); Neutrophils # (A) 3.65 X 10*3/uL (1.80-7.70); Neutrophils % (A) 50.1 %; Platelet Count 247 X 10*3/uL (140-440); RBC 4.27 X 10*6/uL (4.40-5.60); RDW 13.2 % (11.5-14.5); WBC 7.28 X 10*3/uL (4.50-10.00)
== END | disposition home or self-care (01) ==
LOC: LABWHC1 14:28
PROVIDERS: ATTEND Family Medicine
DX: D64.9 Anemia, unspecified (principal)
CPT/HCPCS: 36415; 82272; 85025

== ENCOUNTER → 2024-08-18 | Outpatient (CLI) | payer MEDICARE ==
[2024-08-18 16:10] VITALS: BP 152/82; PULSE 82; RESP 16; TEMP 98.2
--- NOTE | 2024-08-18 16:42 | P.PROGSL ---
Subjective DATE: 08/18/2024 FOLLOW UP VISIT. Patient with obstructive sleep apnea hypopnea syndrome return to sleep center for follow-up visit. Information from previous visit have been reviewed. Patient is using PAP equipment every night for the whole night, getting PAP supplies in time. The patient does not have significant problems with the mask, PAP unit and humidification. [place] sleepiness scale is 4 which is normal. I checked information from PAP unit. PAP unit pressure 5-11, average 8.5 cm H2O. Usage is 90% for more then 4 hours, average 4.6 hours per night. Leak is 28 l/m, which is in acceptable range. Apnea Hypopnea Index is 1.0, which is normal. I support on all questions regarding treatment with Inspire. MEDICATIONS have been reviewed, please see below. During physical exam: GENERAL: A pleasant patient without any distress. VITAL SIGNS: Please see below, weight is 197.2 lbs. HEENT: PERRLA, EOMI.low position of soft palate, Mall[place]ati 4 . NECK: Supple. No JVD. LUNGS: Clear to percussion and to auscultation. Good air exchange. No wheezing or rhonchi. HEART: S1, S2 regular. ABDOMEN: Soft and nontender.[] EXTREMITIES: No clubbing or cyanosis. DIRECTOR DENTAL SERVICES: Awake, alert, and oriented x3. No focal deficit. Impressions: 1. Obstructive sleep apnea-hypopnea syndrome. Patient demonstrated great compliance with treatment, benefiting from treatment. 2. History of neck pain. 3. Back problems. 4. Increased blood pressure in the office. Plan: 1. Continue using PAP equipment every night for the whole night. 2. Sleep hygiene with regular time in bed for at least 7.5-8 hours 3. PAP unit should stay lower then position of the head. 4. Advised patient to remove all remaining water from humidifier canister daily and make it dry after each usage. Refill canister with fresh distilled water before each usage. 5. Watching weight. 6. Precautions related to driving. No driving if feel any sleepiness. 7. I will maintain prescription for PAP supplies including mask, tube, filters. 8. Follow up visit in 8 months or earlier if patient has any problems. Thank you very much for allowing me to participate in the management of your patient. Prasad Wheat MD, PhD, FAASM. Diplomat of [employer] [employer], Sleep Medicine Board by [employer] Clerk of [facility] [place] Objective - Vital Signs Vital Signs: Vital Signs Temp 98.2 F 08/18/24 16:10 Pulse 82 08/18/24 16:10 Resp 16 08/18/24 16:10 BP 152/82 08/18/24 16:10 Pulse Ox 99 08/18/24 16:10 FiO2 Intake & Output 08/17/24 08/18/24 08/18/24 18:59 06:59 18:59 Weight 89.414 kg Home Medications: Home Medications Medication Instructions Recorded Confirmed Type Meclizine [Antivert] 25 mg PO TID PRN #15 tab 06/04/22 Rx Ondansetron Odt [Zofran Odt] 4 mg PO Q8HR PRN #10 tab 06/04/22 Rx
== END ==
LOC: 3 N SLEEP 15:24
PROVIDERS: ATTEND Internal Medicine
DX: G47.33 Obstructive sleep apnea (adult) (pediatric) (principal); M53.9 Dorsopathy, unspecified; R03.0 Elevated blood-pressure reading, without diagnosis of hypertension; Z99.89 Dependence on other enabling machines and devices; Z91.013 Allergy to seafood; Z87.891 Personal history of nicotine dependence; Z79.899 Other long term (current) drug therapy
CPT/HCPCS: 99212

== ENCOUNTER → 2024-09-13 | Outpatient (CLI) | payer MEDICARE ==
[2024-09-13 14:57] LABS: Basophils # (A) 0.07 X 10*3/uL (0.00-0.10); Basophils % (A) 0.8 %; Eosinophils # (A) 0.21 X 10*3/uL (0.04-0.35); Eosinophils % (A) 2.5 %; HCT 41.3 % (39.6-50.0); HGB 12.9 g/dL (13.0-17.0); Lymphocytes # (A) 2.25 X 10*3/uL (0.90-5.00); Lymphocytes % (A) 26.9 %; MCH 28.4 pg (27.0-32.0); MCHC 31.2 g/dL (32.0-37.0); Mean Platelet Volume 11.1 FL (9.5-12.2); Monocytes # (A) 0.53 X 10*3/uL (0.20-1.00); Monocytes % (A) 6.3 %; NRBC Per 100 WBC 0 X 10*3/uL (0.00-0.01); Neutrophils % (A) 63.4 %; Platelet Count 247 X 10*3/uL (140-440); RBC 4.54 X 10*6/uL (4.40-5.60); WBC 8.37 X 10*3/uL (4.50-10.00)
[2024-09-13 14:59] LABS: ALT 34 U/L (10-49); AST 33 U/L (14-35); Albumin 4.3 g/dL (3.8-4.9); Albumin/Globulin Ratio 1.48 Ratio (1.60-3.17); Alkaline Phosphatase 92 U/L (41-126); Calcium 9.7 mg/dL (8.7-10.3); Carbon Dioxide 26.8 mmol/L (21.6-31.8); Chloride 101 mmol/L (96-109); Globulin 2.9 g/dL (1.6-3.3); Glucose 92 mg/dL (70-110); Potassium 4.7 mmol/L (3.5-5.5); Sodium 139 mmol/L (135-145); T4, Free (Free Thyroxine) 1.02 ng/dL (0.80-1.80); Total Bilirubin 0.3 mg/dL (0.3-1.2); Total Protein 7.2 g/dL (6.2-8.2)
== END | disposition home or self-care (01) ==
LOC: LABWHC1 12:17
PROVIDERS: ATTEND Dermatology Procedural Dermatology
DX: L29.89 Other pruritus (principal)
CPT/HCPCS: 36415; 80053; 84439; 84443; 85025

== ENCOUNTER → 2025-01-13 | Outpatient (CLI) | payer MEDICARE ==
[2025-01-13 15:13] LABS: Basophils # (A) 0.09 X 10*3/uL (0.00-0.10); Basophils % (A) 1.6 %; Eosinophils # (A) 0.22 X 10*3/uL (0.04-0.35); Eosinophils % (A) 3.9 %; HCT 41.3 % (39.6-50.0); HGB 13.3 g/dL (13.0-17.0); Lymphocytes # (A) 2.48 X 10*3/uL (0.90-5.00); Lymphocytes % (A) 43.4 %; MCH 28.7 pg (27.0-32.0); MCHC 32.2 g/dL (32.0-37.0); MCV 89.2 FL (80.0-97.0); Mean Platelet Volume 11.1 FL (9.5-12.2); Monocytes # (A) 0.36 X 10*3/uL (0.20-1.00); Monocytes % (A) 6.3 %; NRBC Per 100 WBC 0 X 10*3/uL (0.00-0.01); Neutrophils # (A) 2.55 X 10*3/uL (1.80-7.70); Neutrophils % (A) 44.6 %; Platelet Count 260 X 10*3/uL (140-440); RBC 4.63 X 10*6/uL (4.40-5.60); RDW 13.2 % (11.5-14.5); WBC 5.71 X 10*3/uL (4.50-10.00)
[2025-01-13 15:20] LABS: Appearance,Urine Clear (Clear); Bilirubin,Urine Negative (Negative); Blood,Urine Negative (Negative); Color,Urine Yellow (Yellow); Ketones,Urine Negative (Negative); Nitrite,Urine Negative (Negative); PH, Urine 5.5; Specific Gravity,Urine 1.011 (1.001-1.030); Urobilinogen,Urine 0.2 E.U./DL
[2025-01-13 15:45] LABS: BUN/Creat Ratio 19.36 Ratio (12.00-20.00); Blood Urea Nitrogen 21.3 mg/dL (9.0-27.0); C Reactive Protein <0.30 mg/dL (0.00-0.80); Carbon Dioxide 23.3 mmol/L (21.6-31.8); Chloride 105 mmol/L (96-109); Chol/HDL Ratio 5.33 Ratio; Glucose 96 mg/dL (70-110); LDL Cholesterol,Calculated 138.9 mg/dL (0.0-131.0); Potassium 5.1 mmol/L (3.5-5.5); Rheumatoid Factor, Qnt <15 IU/mL (0-15); Sodium 141 mmol/L (135-145)
[2025-01-13 15:46] LABS: ALT 23 U/L (10-49); AST 28 U/L (14-35); Albumin 4.4 g/dL (3.8-4.9); Albumin/Globulin Ratio 1.63 Ratio (1.60-3.17); Alkaline Phosphatase 99 U/L (41-126); Calcium 9.8 mg/dL (8.7-10.3); Erythrocyte Sedimentation Rate 18 mm/Hr (0-20); Globulin 2.7 g/dL (1.6-3.3); Prostate Specific Antigen 1.52 ng/mL (0.000-6.500); T4, Free (Free Thyroxine) 1.15 ng/dL (0.80-1.80); Total Bilirubin 0.3 mg/dL (0.3-1.2); Total Protein 7.1 g/dL (6.2-8.2)
== END | disposition home or self-care (01) ==
LOC: LABWHC1 08:36
PROVIDERS: ATTEND Family Medicine
DX: M15.9 Polyosteoarthritis, unspecified (principal); N40.0 Benign prostatic hyperplasia without lower urinary tract symptoms; R03.0 Elevated blood-pressure reading, without diagnosis of hypertension
CPT/HCPCS: 36415; 80053; 80061; 81003; 84153; 84402; 84403; 84439; 84443; 85025; 85652; 86038; 86140; 86431

== ENCOUNTER → 2025-04-18 | Outpatient (CLI) | payer MEDICARE ==
[2025-04-18 13:26] LABS: HCT 37.2 % (39.6-50.0); HGB 12.4 g/dL (13.0-17.0); MCH 29.7 pg (27.0-32.0); MCHC 33.3 g/dL (32.0-37.0); MCV 89.0 fL (80.0-97.0); Platelet Count 263 10*3/uL (140-440); RBC 4.18 10*6/uL (4.40-5.60); RDW 12.5 % (11.5-14.5); WBC 7.00 10*3/uL (4.50-10.00)
[2025-04-18 13:46] LABS: African American GFR (CKD) 74 (>60 ml/min/1.73 sqM); Anion Gap 10 mmol/L; Blood Urea Nitrogen 33 mg/dL (9-20); Carbon Dioxide 30 mmol/L (22-30); Chloride 99 mmol/L (98-107); Non-African American GFR(CKD) 64 (>60 ml/min/1.73 sqM); Potassium 4.8 mmol/L (3.5-5.1); Sodium 139 mmol/L (137-145)
--- NOTE | 2025-04-18 14:37 | CT ---
EXAMINATION TYPE: CT angio chest CT DLP: 736.50 mGycm, Automated exposure control for dose reduction was used. DATE OF EXAM: 04/18/2025 2:22 PM COMPARISON: CT chest abdomen and pelvis 04/30/2015 CLINICAL INDICATION:Male, 70 years old with history of I71.20 THORACIC AORTIC ANEURYSM, WITHOUT RUPTU RE,; THORACIC AORTIC ANEURYSM, WITHOUT RUPTURE TECHNIQUE/CONTRAST: CTA scan of the thorax is performed without and with IV Contrast, patient injected with 100ml mL of I sovue 370. 3D reconstructed images are created on an independent workstation and reviewed.. FINDINGS: Pulmonary Artery: There is no evidence for a filling defect within the pulmonary vasculature to sugge st acute pulmonary embolism. The pulmonary artery is of normal size. Lungs/Pleura: No evidence of focal consolidation, pleural effusion or pneumothorax. Scattered regions of calcified pleural plaques. Airway: Large airways are patent. Heart: Size within normal limits.No pericardial effusion. Mild coronary artery calcifications present . Vasculature: Conventional three-vessel aortic arch. Stable aortic root mild aneurysmal dilatation [place] sur[place] up to 4.0 cm. Previously 4.1 cm. Stable ascending thoracic aortic fusiform aneurysm measuring 4.1 cm, previously 4.1 cm. The descending thoracic aorta measures up to 2.9 cm. No evidence of intram ural hematoma or dissection. Normal caliber pulmonary artery without evidence for pulmonary embolism. Mediastinum: Mildly enlarged 1.2 cm short axis precarinal lymph node (series 3, image 27). Additional prominent right hilar and AP window lymph node. Musculoskeletal: No acute osseous abnormalities Soft Tissues: Mild bilateral gynecomastia. Lower neck: No significant findings. Upper Abdomen: Stable left renal lower pole cortical 1.3 cm calcified lesion dating back to 2014 and considered benign. There is an adjacent 1.3 cm simple-appearing cyst. No follow-up recommended. IMPRESSION: 1. Stable fusiform aneurysmal dilatations of the aortic root and ascending thoracic aorta dating back to 2014. No evidence for dissection or intramural hematoma. 2. Nonspecific mildly enlarged mediastinal lymph node with additional couple of prominent right hilar and mediastinal lymph nodes. May be reactive. 3. Scattered calcified pleural plaques. Correlate for prior specific stenosis exposure. [facility], , 04/18/2025 2:35 PM
== END | disposition home or self-care (01) ==
LOC: RADCTMAIN 12:52
PROVIDERS: ATTEND Internal Medicine Interventional Cardiology
DX: I71.21 Aneurysm of the ascending aorta, without rupture (principal); R59.0 Localized enlarged lymph nodes; J92.9 Pleural plaque without asbestos; Z86.79 Personal history of other diseases of the circulatory system
CPT/HCPCS: 80051; 82565; 84520; 85027; 71275; 36415; Q9967

== ENCOUNTER → 2025-04-19 | Outpatient (CLI) | payer MEDICARE ==
[2025-04-19 19:31] LABS: Basophils # (A) 0.08 X 10*3/uL (0.00-0.10); Basophils % (A) 1.1 %; Eosinophils # (A) 0.50 X 10*3/uL (0.04-0.35); Eosinophils % (A) 7.0 %; HCT 38.3 % (39.6-50.0); HGB 12.0 g/dL (13.0-17.0); Immature Grans, Automated 0.30 %; Lymphocytes # (A) 1.96 X 10*3/uL (0.90-5.00); Lymphocytes % (A) 27.3 %; MCH 28.4 pg (27.0-32.0); MCHC 31.3 g/dL (32.0-37.0); MCV 90.5 FL (80.0-97.0); Monocytes # (A) 0.49 X 10*3/uL (0.20-1.00); Monocytes % (A) 6.8 %; NRBC Per 100 WBC 0 X 10*3/uL (0.00-0.01); Neutrophils # (A) 4.12 X 10*3/uL (1.80-7.70); Neutrophils % (A) 57.5 %; Platelet Count 255 X 10*3/uL (140-440); RBC 4.23 X 10*6/uL (4.40-5.60); RDW 12.7 % (11.5-14.5); WBC 7.17 X 10*3/uL (4.50-10.00)
[2025-04-19 19:37] LABS: Ferritin 304.0 ng/mL (22.0-322.0)
[2025-04-19 20:42] LABS: Iron 42.0 UG/DL (65-175); Total Iron Binding Capacity 312.0 UG/DL (228-460)
== END | disposition home or self-care (01) ==
LOC: LABWHC1 12:07
PROVIDERS: ATTEND Family Medicine
DX: D64.9 Anemia, unspecified (principal)
CPT/HCPCS: 36415; 82728; 83540; 83550; 85025

== ENCOUNTER → 2025-05-03 | Day surgery (SDC) | payer MEDICARE ==
[~2025-05-03] MED LIST changes: +ALPRAZolam 0.25 MG TAB PO PRN; +ALPRAZolam 0.5 MG TAB PO PRN; +AMITRIPTYLINE HCL 25 MG TAB PO SCH; +ASPIRIN 325 MG TAB PO ONE; +ASPIRIN 81 MG PO SCH; +ATORVASTATIN 40 MG TAB PO SCH; -LACTATED RINGERS 1,000 ML IV SCH; +NITROGLYCERIN SL TABS 0.4 MG TAB SUBLINGUAL PRN; +RX INFO: IV CONTRAST WAS GIVEN 1 EACH MISC MISCELLANE PRN; +SODIUM CHLORIDE 0.9% 1,000 ML IV SCH
[2025-05-03] MEDS: SODIUM CHLORIDE 0.9% 1,000 ML in EMPTY BAG 1 BAG IV SCH (08:00)
[2025-05-03 08:19] VITALS: RESP 14; TEMP 97.8
[2025-05-03] MEDS: IV FLUID CONTINUATION 1,000 ML IV ONE (08:19)
[2025-05-03] MEDS: HEPARIN SODIUM,PORCINE 10,000 UNIT in SODIUM CHLORIDE 0.9% 1,000 ML IRRIGATION PRN (09:35)
[2025-05-03] MEDS: HEPARIN SODIUM,PORCINE (1 ML) 2,500 UNIT in SODIUM CHLORIDE 0.9% 250 ML IRRIGATION PRN (09:36)
[2025-05-03] MEDS: fentaNYL (PF) 50 MCG/1 ML VIAL IVP ONE (09:44)
[2025-05-03] MEDS: MIDAZOLAM 2 MG/2 ML VIAL IVP ONE (09:51)
[2025-05-03] MEDS: LIDOCAINE 1% INJ 10MG/ML (20 ML MDV) SQ ONE (09:51)
[2025-05-03] MEDS: VERAPAMIL SYRINGE (5 MG/10 ML) INTRAARTER ONE (09:53)
[2025-05-03] MEDS: HEPARIN SODIUM 1,000 UN/ML (10ML VL) IVP ONE (09:56)
[2025-05-03] MEDS: IOPAMIDOL-370 100ML BTL INJ ONE (10:03)
--- NOTE | 2025-05-03 10:21 | P.CARDCATH ---
Date of Procedure: 05/03/25 Description of Procedure: Cardiac Catheterization: The patient is a 70-year-old male with history of hyperlipidemia who has been complaining of progressive fatigue and had an abnormal MPI with evidence of cardiomyopathy. Recommendations were made regarding cardiac catheterization, the risks and the complications were discussed with the patient who is in full understanding and agreement. Procedure Description: Patient was brought to chemical laboratory assistant in fasting semi-sedated state after receiving Fentanyl and Benadryl achieiving moderate conscious sedated state. Using Xylocaine Anesthesia and modified Seldinger technique, a 6-[place] sheath was introduced in the right radial artery . Subsequently, selective coronary angiography was performed using a 5-[place] 3.5 bend Dana catheter. Multiple views of the coronary artery including hemiaxial views were obtained. The 5 [place] pigtail catheter was used to cross the aortic valve and LVEDP was calculated. Following that, catheter and sheath were removed. Hemostasis was obtained with deployment of vascular band . There was no immediate complication. Patient was returned to room in stable condition. Of note, the patient received a total of 4500 units of intravenous heparin as well as intra-arterial verapamil. Findings: Left main: This is a large size vessel, bifurcating into LAD and left circumflex, left main has no obstructive disease LAD: This is a large size vessel, tapers down in the distal third, gives rise to a large diagonal branch proximally the LAD and its branches have no significant obstructive disease Left circumflex: This is a large nondominant vessel giving rise to a large obtuse marginal branch that has a 10% plaque, the rest of the vessel has no high-grade stenosis RCA: This is a large dominant vessel, bifurcating distally to PDA and PLV the PDA reaches to the inferoapical wall. The mid RCA has 10 to 20% plaque with no high-grade stenosis Left Ventriculogram: Not performed Hemodynamics: There was no gradient across the aortic valve, LVEDP was 8-10 mmHg Conclusion: 1. Mild intimal disease in the RCA and left circumflex 2. Right dominance 3. Low LVEDP Recommendations: I have recommended to continue medical therapy with treatment of his cardiomyopathy and optimizing his medical regimen. The findings and the recommendations were discussed with the patient and the family and they were in full understanding and agreement. Duration of sedation is 15 minutes.
[2025-05-03 12:26] VITALS: BP 122/68; PULSE 80
[2025-05-03 15:18] LABS: Cholesterol 140.00 mg/dL (0.00-200.00); HDL Cholesterol 35.20 mg/dL (40.00-60.00); LDL Cholesterol,Calculated 75.4 mg/dL (0.0-131.0); Triglycerides 147.00 mg/dL (0.00-149.00); VLDL Calculation 29.40 mg/dL (5.00-40.00)
== END | disposition home or self-care (01) ==
LOC: CATHCVL 07:29
PROVIDERS: ATTEND Internal Medicine Interventional Cardiology
DX: I42.9 Cardiomyopathy, unspecified (principal); I77.810 Thoracic aortic ectasia; E78.2 Mixed hyperlipidemia; G47.33 Obstructive sleep apnea (adult) (pediatric); Z72.0 Tobacco use; Z79.82 Long term (current) use of aspirin; Z79.899 Other long term (current) drug therapy
CPT/HCPCS: 93458; 80061; 99152; C1769 ×2; C1894; J2250; J1644 ×3; J2003; Q9967; J3010